=== PATIENT | female | born 1975 | race African-American/Black ===

== ENCOUNTER 2021-03-11 20:07 | Emergency (ER) | payer OTHER ==
[2021-03-11] MEDS ORDERED: Ketorolac Tromethamine 30 MG/ML VIAL ONE (21:45)
== END 2021-03-11 22:09 | disposition home or self-care (01) ==
LOC: CSHERS 20:07
DX: M25.561 Pain in right knee (principal); I10 Essential (primary) hypertension; J45.909 Unspecified asthma, uncomplicated; Z79.899 Other long term (current) drug therapy
CPT/HCPCS: 96372; J1885

== ENCOUNTER 2021-10-02 23:01 | Emergency (ER) | payer OTHER, SELFPAY ==
[2021-10-02 23:32] LABS: Bilirubin Neg (Negative); Blood, Urine Negative (Negative); Clarity Clear (Clear); Glucose, Urine (Dipstick) Normal (Negative); Ketone, Urine Negative (Negative); Leukocyte Negative (Negative); Nitrite Negative (Negative); Protein, Urine (Dipstick) Negative (Neg-Trace); Specific Gravity, Urine 1.025 (1.002-1.036); Urobilinogen Normal mg/dL (Less than 2)
== END 2021-10-02 23:50 | disposition home or self-care (01) ==
LOC: CSHERS 23:01
DX: R30.0 Dysuria (principal); I10 Essential (primary) hypertension
CPT/HCPCS: 81003; 87086; 99283

== ENCOUNTER 2022-02-19 10:31 | Emergency (ER) | payer MEDICAID, MEDICARE, SELFPAY ==
[2022-02-19 11:53] LABS: SARS-CoV-2 NAA Rapid Test Not Detected (NotDetected)
== END 2022-02-19 12:27 | disposition home or self-care (01) ==
LOC: CSHERS 10:31
DX: B34.9 Viral infection, unspecified (principal); Z20.822 Contact with and (suspected) exposure to COVID-19; I10 Essential (primary) hypertension
CPT/HCPCS: 99283

== ENCOUNTER 2022-02-27 09:57 | Emergency (ER) | payer SELFPAY | END 2022-02-27 11:40 | disposition home or self-care (01) | LOC: CSHERS 09:57 | DX: M25.562 Pain in left knee (principal); I10 Essential (primary) hypertension ==

== ENCOUNTER 2023-02-14 14:44 | Emergency (ER) | payer OTHER | END 2023-02-14 16:46 | disposition home or self-care (01) | LOC: CSHERS 14:44 | DX: J10.1 Influenza due to other identified influenza virus with other respiratory manifestations (principal); M79.10 Myalgia, unspecified site; I10 Essential (primary) hypertension; D64.9 Anemia, unspecified | CPT/HCPCS: 87804; 99283 ==

== ENCOUNTER 2023-03-07 11:20 | Emergency (ER) | payer OTHER ==
[2023-03-07] MEDS ORDERED: Ondansetron ODT 4 MG TAB ONE (12:32)
[2023-03-07] MEDS ORDERED: predniSONE 20 MG TAB ONE (12:32)
[2023-03-07 12:50] LABS: #Basophils 0.1 10x3/uL (0.0-0.2); #Eosinphils 0.2 10x3/uL (0.0-0.5); #Monocytes 0.6 10x3/uL (0.0-1.1); #Neutrophils 3.5 10x3/uL (1.5-8.4); %Basophils 0.8 % (0.0-2.0); %Lymphocytes 44.7 % (18.0-47.0); %Neutrophils 45.1 % (40.0-75.0); Hematocrit 36.7 % (34.9-44.5); Hemoglobin 12.2 g/dL (12.0-15.5); Mean Corpuscular HGB CONC 33.2 g/dL (32.0-36.0); Mean Corpuscular Hemoglobin 26.8 pg (27.0-33.0); Mean Corpuscular Volume 80.7 fl (81.6-98.3); Mean Platelet Volume 9.3 fl (7.4-10.4); Platelet Count 282 10x3/uL (150-450); RBC Distribution Width 15.1 % (11.5-14.5); Red Blood Cell (RBC) Count 4.55 10x6/uL (3.90-5.03); White Blood Cell (WBC) Count 7.8 10x3/uL (3.5-10.5)
[2023-03-07 12:50] LABS: SARS-CoV-2 NAA Rapid Test Not Detected (NotDetected)
[2023-03-07 13:03] LABS: ALT (SGPT) 32 U/L (8-55); AST (SGOT) 25 U/L (5-34); Albumin 3.9 g/dL (3.5-5.0); Alkaline Phosphatase 91 U/L (40-110); Anion Gap 15 mmol/L (10-20); BUN (Urea Nitrogen) 17 mg/dL (7.0-18.7); Bilirubin, Total Less than 0.2 mg/dL (0.2-1.2); Calc. Creatinine Clearance 0 mL/min (70-130); Calcium 9.2 mg/dL (7.8-10.44); Carbon Dioxide 24 mmol/L (22-29); Chloride 107 mmol/L (98-107); Estimated GFR 79; Globulin 2.9 g/dL (2.4-3.5); Glucose 93 mg/dL (70-105); Potassium 4.4 mmol/L (3.5-5.1); Protein, Total 6.8 g/dL (6.0-8.3); Sodium 142 mmol/L (136-145)
== END 2023-03-07 13:42 | disposition home or self-care (01) ==
LOC: CSHERS 11:20
DX: B34.9 Viral infection, unspecified (principal); I10 Essential (primary) hypertension; Z20.822 Contact with and (suspected) exposure to COVID-19
CPT/HCPCS: 36415; 71045; 80053; 85025; J7512; Q0162

== ENCOUNTER 2023-06-01 12:55 | Emergency (ER) | payer MEDICARE, OTHER ==
[~2023-06-01 12:55] MED LIST: Iopamidol 300 61% 100 ML VIAL FS ONE
[2023-06-01] MEDS ORDERED: Ketorolac Tromethamine 30 MG (1 mL) VIAL ONE (14:12)
[2023-06-01 14:21] LABS: #Basophils 0.1 10x3/uL (0.0-0.2); #Eosinphils 0.3 10x3/uL (0.0-0.5); #Monocytes 0.6 10x3/uL (0.0-1.1); #Neutrophils 3.3 10x3/uL (1.5-8.4); %Basophils 0.9 % (0.0-2.0); %Eosinophils 3.3 % (0.0-6.0); %Lymphocytes 44.6 % (18.0-47.0); %Monocytes 7.7 % (0.0-10.0); %Neutrophils 43.2 % (40.0-75.0); Hematocrit 38.2 % (34.9-44.5); Hemoglobin 12.6 g/dL (12.0-15.5); Mean Corpuscular Hemoglobin 26.4 pg (27.0-33.0); Mean Corpuscular Volume 79.9 fl (81.6-98.3); Mean Platelet Volume 9.9 fl (7.4-10.4); Platelet Count 303 10x3/uL (150-450); RBC Distribution Width 14.8 % (11.5-14.5); Red Blood Cell (RBC) Count 4.78 10x6/uL (3.90-5.03); White Blood Cell (WBC) Count 7.7 10x3/uL (3.5-10.5)
[2023-06-01] MEDS ORDERED: methylPREDNISolone Sod Succ 40 MG VIAL ONE (14:23)
[2023-06-01] MEDS ORDERED: Famotidine/PF 20 mg/2ml Vial ONE (14:23)
[2023-06-01] MEDS ORDERED: diphenhydrAMINE 50 MG/ML VIAL ONE (14:23)
[2023-06-01 14:37] LABS: ALT (SGPT) 29 U/L (8-55); AST (SGOT) 29 U/L (5-34); Albumin 4.1 g/dL (3.5-5.0); Alkaline Phosphatase 103 U/L (40-110); Anion Gap 15 mmol/L (10-20); BUN (Urea Nitrogen) 17 mg/dL (7.0-18.7); Bilirubin, Total 0.4 mg/dL (0.2-1.2); Calc. Creatinine Clearance 0 mL/min (70-130); Calcium 9.3 mg/dL (7.8-10.44); Carbon Dioxide 22 mmol/L (22-29); Chloride 109 mmol/L (98-107); Estimated GFR 79; Globulin 2.9 g/dL (2.4-3.5); Glucose 89 mg/dL (70-105); Sodium 141 mmol/L (136-145)
[2023-06-01] MEDS ORDERED: Amoxicillin/Potassium Clav 875 MG TAB ONE (16:21)
== END 2023-06-01 16:38 | disposition home or self-care (01) ==
LOC: CSHERS 12:55
DX: J01.90 Acute sinusitis, unspecified (principal); I10 Essential (primary) hypertension
CPT/HCPCS: 70487; 80053; 83605; 85025; 86140; 96374; 96375; J1200; J1885; J2920; Q9967; S0028

== ENCOUNTER 2025-01-30 11:18 | Emergency (ER) | payer OTHER ==
[2025-01-30 12:06] LABS: Glucose, Urine (Dipstick) Normal (Negative); Leukocyte Negative (Negative); Protein, Urine (Dipstick) Negative (Neg-Trace); Specific Gravity, Urine 1.020 (1.005-1.030)
[2025-01-30 12:13] LABS: Bacteria/HPF 2+ HPF (None Seen); CAUTI Indications for Culture Alt mental st,lethar; RBC/HPF None Seen HPF (0-3); WBC/HPF 0-3 HPF (0-3); Yeast-Budding Rare HPF (None Seen)
[2025-01-30 12:14] LABS: Mucous/LPF Rare LPF (<2+); Urine Culture Reflex No No
[2025-01-30 13:55] LABS: #Basophils 0.05 10x3/uL (0.0-0.2); #Eosinophils 0.23 10x3/uL (0.0-0.5); #Monocytes 0.43 10x3/uL (0.0-1.1); #Neutrophils 3.18 10x3/uL (1.5-8.4); %Basophils 0.6 % (0.0-2.0); %Eosinophils 2.9 % (0.0-6.0); %Lymphocytes 50.6 % (18.0-47.0); %Monocytes 5.4 % (0.0-10.0); %Neutrophils 40.4 % (40.0-75.0); Hematocrit 36.7 % (34.9-44.5); Hemoglobin 12.0 g/dL (12.0-15.5); Mean Corpuscular Hemoglobin 26.0 pg (27.0-33.0); Mean Corpuscular Volume 79.4 fL (81.6-98.3); Platelet Count 324 10x3/uL (150-450); Red Blood Cell (RBC) Count 4.62 10x6/uL (3.90-5.03); White Blood Cell (WBC) Count 7.90 10x3/uL (3.5-10.5)
[2025-01-30 14:12] LABS: ALT (SGPT) 19 U/L (Less than 34); AST (SGOT) 23 U/L (11-34); Albumin 4.1 g/dL (3.1-4.5); Alkaline Phosphatase 121 U/L (40-110); Anion Gap 17 mmol/L (10-20); BUN (Urea Nitrogen) 17 mg/dL (9.8-20.1); Bilirubin, Total 0.2 mg/dL (0.3-1.2); Calc. Creatinine Clearance 0 mL/min (70-130); Calcium 9.1 mg/dL (7.8-10.44); Carbon Dioxide 23 mmol/L (22-29); Chloride 108 mmol/L (98-107); Globulin 3.5 g/dL (2.4-3.5); Glucose 84 mg/dL (70-105); Magnesium 1.9 mg/dL (1.6-2.6); Potassium 4.0 mmol/L (3.5-5.1); Sodium 144 mmol/L (136-145)
[2025-01-30 14:14] LABS: Troponin I Less than 0.010 ng/mL (< 0.028)
== END 2025-01-30 16:42 | disposition home or self-care (01) ==
LOC: CSHERS 11:18
DX: R42 Dizziness and giddiness (principal); B37.31 Acute candidiasis of vulva and vagina; I10 Essential (primary) hypertension; R29.700 NIHSS score 0
CPT/HCPCS: 70450; 71045; 80053; 81001; 83735; 84443; 84484; 85025; 87428; 93005